=== PATIENT | female | born 1975 | race Hispanic/Latino ===

== ENCOUNTER 2022-03-13 17:43 | Inpatient (IN) | payer OTHER ==
[~2022-03-13] VITALS: Ht 154.9 cm; Wt 83.4 kg
[2022-03-13] MEDS ORDERED: DIAZEPAM 5 MG/ML 2 ML SYG IVP ONE (19:00)
[2022-03-13] MEDS ORDERED: DEXAMETHASONE 4 MG TAB PO SCH (19:00)
[2022-03-13] MEDS ORDERED: KETOROLAC 30MG VIAL (30MG/ML) IVP ONE (19:00)
[2022-03-13 19:11] LABS: APPEARANCE,URINE Clear (CLEAR); BILIRUBIN,URINE Negative (NEGATIVE); COLOR,URINE Yellow (YELLOW); GLUCOSE, URINE (UA) Negative (NEGATIVE); KETONES,URINE Negative (NEGATIVE); LEUKOCYTE ESTERASE ,URINE Negative (NEGATIVE); NITRATE,URINE Negative (NEGATIVE); OCCULT BLOOD,URINE Negative (NEGATIVE); PH,URINE 5.5 (5.0-8.0); PROTEIN,URINE Negative (NEGATIVE); UROBILINOGEN,URINE 0.2 mg/dL (0.2-1.0)
[2022-03-13 19:14] LABS: HCG,QUAL RESULT NEGATIVE (NEGATIVE)
[2022-03-13 19:21] LABS: BASOPHILS % (AUTO) 0.6 % (0.0-5.0); EOSINOPHILS % (AUTO) 2.3 % (0.0-8.0); HEMATOCRIT 46.1 % (36-48); LYMPHOCYTES % (AUTO) 26.5 % (21.0-51.0); MEAN CORPUSCULAR HEMOGLOBIN 30.7 pg (27.0-33.0); MEAN CORPUSCULAR HGB CONC 33.4 g/dL (32.0-36.0); MEAN CORPUSCULAR VOLUME 91.8 fL (79-99); MONOCYTES % (AUTO) 7.9 % (3.0-13.0); NEUTROPHILS % (AUTO) 62.5 % (40.0-77.0); PLATELET COUNT (AUTO) 367 K/uL (130-400); RED BLOOD CELL COUNT(AUTO) 5.02 MIL/uL (4.00-5.50); RED CELL DISTRIBUTION WIDTH 12.7 % (11.0-15.5); WHITE BLOOD COUNT (AUTO) 8.6 K/uL (4.8-10.8)
[2022-03-13 19:34] LABS: CREATININE 0.6 mg/dL (0.5-1.5)
[2022-03-13 19:41] LABS: ALBUMIN 4.3 g/dL (3.5-5.0); BILIRUBIN,TOTAL 0.6 mg/dL (0.2-1.0); TOTAL PROTEIN, SERUM 8.4 g/dL (6.0-8.3)
[2022-03-13] MEDS ORDERED: MORPHINE 2 MG SYG IV PRN (20:30)
[2022-03-13] MEDS: FAMOTIDINE 20MG TAB PO SCH (21:16)
[2022-03-13] MEDS: HYDROMORPHONE 0.5 MG SYG (0.5MG/0.5ML) IV PRN (21:16)
[2022-03-13 23:00] VITALS: BP 153/87
[2022-03-13] MEDS: ONDANSETRON 4MG INJ IV PRN (23:20)
[2022-03-14] MEDS: HYDROMORPHONE 0.5 MG SYG (0.5MG/0.5ML) IV PRN (01:07)
[2022-03-14 04:01] VITALS: BP 122/79
[2022-03-14] MEDS: KETOROLAC 30MG VIAL (30MG/ML) IVP PRN ×3 (04:35→17:32)
[2022-03-14] MEDS ORDERED: GABA-529 PO (07:46)
[2022-03-14] MEDS ORDERED: MELO-106 PO (07:46)
[2022-03-14] MEDS ORDERED: CYCL10TA16 PO (07:46)
[2022-03-14] MEDS ORDERED: OXYC1TAB12 PO (07:46)
[2022-03-14 08:00] VITALS: BP 119/70
[2022-03-14] MEDS: ONDANSETRON 4MG INJ IV PRN (08:19)
[2022-03-14] MEDS: FAMOTIDINE 20MG TAB PO SCH ×2 (09:00→21:07)
[2022-03-14] MEDS ORDERED: ENOXAPARIN SODIUM 40 MG/0.4 ML SYRINGE SQ SCH (09:00)
[2022-03-14] MEDS: ACETAMINOPHEN 500 MG TABLET PO SCH ×2 (09:30→17:30)
[2022-03-14] MEDS ORDERED: LIDOCAINE 5% TOPICAL PATCH TP SCH (09:30)
[2022-03-14] MEDS ORDERED: GADOTERATE MEGLUMINE 10 MMOL/20 ML VIAL IV ONE (10:31)
[2022-03-14] MEDS: DEXAMETHASONE SOD PHOSPHATE 4 MG/ML 1ML VIAL IV SCH ×2 (11:08→21:07)
[2022-03-14 12:00] VITALS: BP 119/71
[2022-03-14 16:00] VITALS: BP 118/70
[2022-03-14 19:22] VITALS: BP 114/95
[2022-03-14] MEDS: GABAPENTIN 100 MG CAPSULE PO SCH (21:07)
[2022-03-14 23:25] VITALS: BP 131/86
[2022-03-15] MEDS: ACETAMINOPHEN 500 MG TABLET PO SCH ×2 (01:01→08:24)
[2022-03-15 03:19] VITALS: BP 121/78
[2022-03-15 05:33] LABS: BASOPHILS % (AUTO) 0.1 % (0.0-5.0); HEMATOCRIT 41.5 % (36-48); LYMPHOCYTES % (AUTO) 6.9 % (21.0-51.0); MEAN CORPUSCULAR HEMOGLOBIN 29.9 pg (27.0-33.0); MEAN CORPUSCULAR VOLUME 93.3 fL (79-99); MONOCYTES % (AUTO) 4.1 % (3.0-13.0); NEUTROPHILS % (AUTO) 88.3 % (40.0-77.0); PLATELET COUNT (AUTO) 362 K/uL (130-400); RED BLOOD CELL COUNT(AUTO) 4.45 MIL/uL (4.00-5.50); RED CELL DISTRIBUTION WIDTH 12.5 % (11.0-15.5); WHITE BLOOD COUNT (AUTO) 15.6 K/uL (4.8-10.8)
[2022-03-15 05:57] LABS: ALBUMIN 3.8 g/dL (3.5-5.0); BILIRUBIN,TOTAL 0.6 mg/dL (0.2-1.0); CREATININE 0.7 mg/dL (0.5-1.5); POTASSIUM 3.9 mmol/L (3.5-5.1); TOTAL PROTEIN, SERUM 7.7 g/dL (6.0-8.3)
[2022-03-15 08:00] VITALS: BP 146/96
[2022-03-15] MEDS: DEXAMETHASONE SOD PHOSPHATE 4 MG/ML 1ML VIAL IV SCH (08:23)
[2022-03-15] MEDS: FAMOTIDINE 20MG TAB PO SCH (08:24)
[2022-03-15] MEDS: GABAPENTIN 100 MG CAPSULE PO SCH ×2 (08:24→14:00)
[2022-03-15 11:46] VITALS: BP 133/86
== END 2022-03-15 13:24 | disposition home or self-care (01) | DRG 552 ==
LOC: EDH 17:43 → UNDOADMOB 20:22 → EDHIP 20:22 → OBSVTOIN 20:25 → 3DH 21:44 → UNDODISIN 03-15 13:24
PROVIDERS: ADMIT Internal Medicine; ATTEND Internal Medicine
DX: M48.061 Spinal stenosis, lumbar region without neurogenic claudication (principal); Z79.899 Other long term (current) drug therapy; E66.9 Obesity, unspecified; G43.909 Migraine, unspecified, not intractable, without status migrainosus; D25.9 Leiomyoma of uterus, unspecified; Z68.34 Body mass index [BMI] 34.0-34.9, adult
CPT/HCPCS: 36415; 72131; 72158; 80053; 81003; 81025; 83735; 84484; 85025; G0378; J1100; J1170; J1885; J2405; J3360; J8540

== ENCOUNTER 2022-03-27 06:40 | Day surgery (SDC) | payer OTHER ==
[2022-03-22 12:56] LABS: BASOPHILS % (AUTO) 0.3 % (0.0-5.0); HEMATOCRIT 42.3 % (36-48); LYMPHOCYTES % (AUTO) 31.2 % (21.0-51.0); MEAN CORPUSCULAR HEMOGLOBIN 30.9 pg (27.0-33.0); MEAN CORPUSCULAR HGB CONC 33.8 g/dL (32.0-36.0); MEAN CORPUSCULAR VOLUME 91.4 fL (79-99); MONOCYTES % (AUTO) 8.3 % (3.0-13.0); NEUTROPHILS % (AUTO) 58.8 % (40.0-77.0); PLATELET COUNT (AUTO) 337 K/uL (130-400); RED BLOOD CELL COUNT(AUTO) 4.63 MIL/uL (4.00-5.50); RED CELL DISTRIBUTION WIDTH 13.1 % (11.0-15.5); WHITE BLOOD COUNT (AUTO) 12.6 K/uL (4.8-10.8)
[2022-03-22 13:19] LABS: INR 0.93 (0.85-1.15); PROTHROMBIN TIME 9.8 SEC (9.6-11.6)
[2022-03-22 13:21] LABS: CREATININE 0.6 mg/dL (0.5-1.5); POTASSIUM 3.8 mmol/L (3.5-5.1)
[~2022-03-27] VITALS: Ht 154.9 cm; Wt 83.4 kg
[2022-03-27] VITALS (18 sets, daily range): BP systolic 117–143; BP diastolic 71–92
[~2022-03-27 06:40] MED LIST: ACET-2079 PO; ACET-2743 PO
[2022-03-27] MEDS ORDERED: CEFAZOLIN SODIUM 1 GM VIAL ONE ×2 (07:12→07:34)
[2022-03-27] MEDS ORDERED: VANCOMYCIN 1G VIAL ONE (07:12)
[2022-03-27] MEDS ORDERED: BUPIVACAINE/PF 0.25% 30ML VIAL IJ ONE (07:12)
[2022-03-27] MEDS ORDERED: TOBRAMYCIN SULFATE POWDER 1.2 GM/VIAL ONE (07:12)
[2022-03-27] MEDS ORDERED: THROMBIN-JMI 5000 UNIT/VIAL TP ONE (07:13)
[2022-03-27] MEDS ORDERED: VITAMIN D PO (07:19)
[2022-03-27] MEDS ORDERED: MIDAZOLAM HCL 1 MG/ML 2ML VIAL ONE (07:29)
[2022-03-27] MEDS ORDERED: LACTATED RINGERS 1000ML 1,000 ML IV ONE (07:34)
[2022-03-27] MEDS ORDERED: LIDOCAINE PF 100MG/5ML (2%) SYRINGE 5ML ONE (07:53)
[2022-03-27] MEDS ORDERED: FENTANYL CITRATE PF 50 MCG/1 ML 2ML VIAL ONE (07:53)
[2022-03-27] MEDS ORDERED: ROCURONIUM 10MG/1ML SYR 10 MG/ML ML ONE ×2 (07:53→09:07)
[2022-03-27] MEDS ORDERED: SUCCINYLCHOLINE CHLORIDE 20 MG/ML 10 ML VIAL ONE (07:53)
[2022-03-27] MEDS ORDERED: PROPOFOL 10 MG/ML 20ML VIAL IV ONE ×2 (07:53→09:03)
[2022-03-27] MEDS ORDERED: ONDANSETRON 4MG INJ ONE ×2 (09:12→09:53)
[2022-03-27] MEDS ORDERED: DEXAMETHASONE SOD PHOSPHATE 10MG/ML 1ML VIAL ONE (09:12)
[2022-03-27] MEDS ORDERED: NEOSTIGMINE 5MG/5ML SYR IV ONE (09:12)
[2022-03-27] MEDS ORDERED: GLYCOPYRROLATE 1 MG/5 ML SYRINGE ONE (09:12)
[2022-03-27] MEDS ORDERED: KETOROLAC 30MG VIAL (30MG/ML) ONE (09:26)
[2022-03-27] MEDS ORDERED: MEPERIDINE-PF 25 MG/ML SYG ONE ×2 (09:54→10:18)
[2022-03-27] MEDS ORDERED: METOCLOPRAMIDE 10 MG/2 ML VIAL ONE (10:04)
== END 2022-03-27 12:03 | disposition home or self-care (01) ==
LOC: DAH 06:40
PROVIDERS: ATTEND Neuromusculoskeletal Medicine & OMM
DX: M51.16 Intervertebral disc disorders with radiculopathy, lumbar region (principal); M19.90 Unspecified osteoarthritis, unspecified site; Z79.01 Long term (current) use of anticoagulants; Z98.890 Other specified postprocedural states; Z98.891 History of uterine scar from previous surgery; Z98.84 Bariatric surgery status; Z79.899 Other long term (current) drug therapy
CPT/HCPCS: 36415; 63030; 71045; 72110; 80048; 84703; 85025; 85610; 86850; 86900; 86901; 87635; 93005; A4215; A4221; A4222; A4223; A4649 ×5; A4663; A4930; A6219; A6260; C9803; G0168; J0330; J0690 ×2; J1100; J1885; J2001; J2175 ×2; J2250; J2405 ×2; J2704 ×2; J2710; J2765; J3010; J3260; J3370; J3490 ×3; J7030; J7120 ×2